=== PATIENT | female | born 1930 | race Caucasian/White ===

== ENCOUNTER → 2016-12-31 | Outpatient (REF) | payer MEDICARE, OTHER ==
[~2016-12-31] MED LIST: ALBU17IN INH; ASTE0.15; ATEN25TA PO; CALCTAB93 PO; MAGNES; MAGNESIUM PO; OMEP20CA3 PO; RECLAST; SIMV40TA2 PO; SPECTROVITE PO; SPIR25TA2 PO; SYSTANE OU; VITAMIN D2 PO; [UNRECOGNIZED DRUG - OTHER] PO
== END ==
LOC: M WUC 09:05
PROVIDERS: ATTEND Physician Assistant
DX: R35.0 Frequency of micturition (principal)

== ENCOUNTER → 2017-06-30 | Outpatient (CLI) | payer MEDICARE, OTHER ==
--- NOTE | 2017-06-30 14:38 | REP ---
TRIPLE PHASE BONE SCAN OF PELVIS AND HIPS: Following the intravenous administration of 22 mCi of technetium-99m MDP, patient's pelvis and hips are imaged in the flow phase in the anterior and posterior projections showing symmetrical blood flow. Immediate blood pool and 2 hour delayed images are performed of the pelvis and hips in the anterior, posterior, and both anterior oblique and posterior oblique projections as well as both lateral projections. There is no abnormal blood pooling. Delayed images show minimal arthritic uptake in the lower lumbar spine region. There is no other abnormal uptake seen with no evidence of occult fracture. IMPRESSION: Mild arthritic uptake in the lumbar spine. No occult fracture. Signed by Jay Irby MD 07/01/2017 04:28 P
== END ==
LOC: M RAD 07:59
PROVIDERS: ATTEND Orthopaedic Surgery
DX: M51.36 Other intervertebral disc degeneration, lumbar region (principal)
CPT/HCPCS: 78315; A9503

== ENCOUNTER → 2018-03-26 | Outpatient (REF) | payer MEDICARE, OTHER ==
[2018-03-26 21:52] LABS: APPEARANCE, URINE CLEAR (CLEAR); BACTERIA, URINE AUTO NEGATIVE (NEGATIVE); BILIRUBIN, URINE AUTO NEGATIVE (NEGATIVE); BLOOD, URINE BLOOD NEGATIVE (NEGATIVE); COLOR, URINE STRAW (YELLOW); GLUCOSE, URINE (UA) AUTO NEGATIVE (NEGATIVE); KETONE, URINE AUTO NEGATIVE (NEGATIVE); LEUKOCYTE ESTERASE, URINE AUTO NEGATIVE (NEGATIVE); NITRITE, URINE AUTO NEGATIVE (NEGATIVE); PROTEIN, URINE AUTO NEGATIVE (NEGATIVE); RBC, URINE AUTO 0 /HPF (0-3); SPECIFIC GRAVITY URINE AUTO 1.004 (1.002-1.035); SQUAMOUS EPITHELIAL CELL UR AU 0 /HPF (0-6); UROBILINOGEN, URINE AUTO 0.2 mg/dL (0.0-2.0); WBC, URINE AUTO 0 /HPF (0-3)
== END ==
LOC: M LAB REF 09:47
DX: N39.0 Urinary tract infection, site not specified (principal)
CPT/HCPCS: 81001

== ENCOUNTER → 2018-04-05 | Outpatient (REF) | payer MEDICARE, OTHER ==
[2018-04-05 17:55] LABS: APPEARANCE, URINE CLEAR (CLEAR); BACTERIA, URINE AUTO NEGATIVE (NEGATIVE); BILIRUBIN, URINE AUTO NEGATIVE (NEGATIVE); BLOOD, URINE BLOOD NEGATIVE (NEGATIVE); COLOR, URINE YELLOW (YELLOW); GLUCOSE, URINE (UA) AUTO NEGATIVE (NEGATIVE); KETONE, URINE AUTO NEGATIVE (NEGATIVE); LEUKOCYTE ESTERASE, URINE AUTO 1+ (NEGATIVE); MUCUS, URINE SMALL (NEGATIVE); NITRITE, URINE AUTO NEGATIVE (NEGATIVE); PROTEIN, URINE AUTO NEGATIVE (NEGATIVE); RBC, URINE AUTO 1 /HPF (0-3); SPECIFIC GRAVITY URINE AUTO 1.011 (1.002-1.035); SQUAMOUS EPITHELIAL CELL UR AU 0 /HPF (0-6); UROBILINOGEN, URINE AUTO 0.2 mg/dL (0.0-2.0); WBC, URINE AUTO 3 /HPF (0-3)
== END ==
LOC: M LAB REF 16:23
DX: N39.0 Urinary tract infection, site not specified (principal)
CPT/HCPCS: 81001

== ENCOUNTER → 2018-04-29 | Outpatient (REF) | payer MEDICARE, OTHER | LOC: M LAB REF 16:27 | DX: N39.0 Urinary tract infection, site not specified (principal) | CPT/HCPCS: 87086 ==

== ENCOUNTER → 2018-06-17 | Outpatient (CLI) | payer MEDICARE, OTHER ==
[2018-06-17 20:49] LABS: BLOOD UREA NITROGEN 15 MG/DL (7-18)
[2018-06-17 20:49] LABS: GLOMERULAR FILTRATION RATE > 60.0 (>32)
== END ==
LOC: M WUC 18:07
DX: M51.36 Other intervertebral disc degeneration, lumbar region (principal)
CPT/HCPCS: 82565

== ENCOUNTER → 2018-06-23 | Outpatient (CLI) | payer MEDICARE, OTHER ==
[~2018-06-23] MED LIST changes: -ALBU17IN INH; -ASTE0.15; -ATEN25TA PO; -CALCTAB93 PO; -MAGNES; -MAGNESIUM PO; -OMEP20CA3 PO; +PROHANCE 279.3MG/ML 15ML VIAL (A9576) As Ordered; +PROHANCE 279.3MG/ML 5ML VIAL (A9576) As Ordered; -RECLAST; -SIMV40TA2 PO; -SPECTROVITE PO; -SPIR25TA2 PO; -SYSTANE OU; -VITAMIN D2 PO; -[UNRECOGNIZED DRUG - OTHER] PO
== END ==
LOC: M RAD 15:05
DX: M99.73 Connective tissue and disc stenosis of intervertebral foramina of lumbar region (principal); M43.16 Spondylolisthesis, lumbar region; M51.36 Other intervertebral disc degeneration, lumbar region
CPT/HCPCS: A9576

== ENCOUNTER → 2018-07-20 | Outpatient (CLI) | payer MEDICARE, OTHER ==
[2018-07-20 16:54] LABS: PLATELET COUNT, AUTOMATED 170 10^3/uL (150-450)
[2018-07-20 17:07] LABS: COLLAGEN EPINEPHRINE 100 SECONDS (74-162)
[2018-07-20 17:19] LABS: INR 1.08; PROTHROMBIN TIME 14.1 SECONDS (12.1-14.4)
[2018-07-20 17:20] LABS: PARTIAL THROMBOPLASTIN TIME 30.4 SECONDS (25.4-37.6)
== END ==
LOC: M LAB 16:21
DX: M51.36 Other intervertebral disc degeneration, lumbar region (principal)
CPT/HCPCS: 85049

== ENCOUNTER 2018-12-25 09:49 | Emergency (ER) | payer MEDICARE, OTHER ==
[~2018-12-25] VITALS: Ht 170.2 cm; Wt 104.5 kg
[~2018-12-25 09:49] MED LIST changes: +ALBU17IN INH; +ASTE0.15; +ATEN25TA PO; +CALCTAB93 PO; +MAGNES; +MAGNESIUM PO; +OMEP20CA3 PO; -PROHANCE 279.3MG/ML 15ML VIAL (A9576) As Ordered; -PROHANCE 279.3MG/ML 5ML VIAL (A9576) As Ordered; +RECLAST; +SIMV40TA2 PO; +SPECTROVITE PO; +SPIR-10 PO; +SYSTANE OU; +VITAMIN D2 PO; +[UNRECOGNIZED DRUG - OTHER] PO
[2018-12-25] MEDS ORDERED: NS 1,000 ML IV ONE (10:30)
[2018-12-25 10:41] LABS: BASO % 0.3 % (0.0-1.0); EOS % 0.2 % (0.0-3.0); HEMATOCRIT 53.1 % (36.0-47.0); HEMOGLOBIN 17.4 g/dl (12.0-15.5); LYMPH # 1.4 10^3/uL (1.5-4.5); LYMPH % 12.3 % (24.0-44.0); MEAN CORPUSCULAR HEMOGLOBIN 31.6 pg (27.0-33.0); MEAN CORPUSCULAR HGB CONC 32.8 g/dl (32.0-36.5); MEAN CORPUSCULAR VOLUME 96.5 fl (80.0-96.0); MONO % 8.3 % (0.0-5.0); NEUTROPHILS # 9.2 10^3/uL (1.8-7.7); NEUTROPHILS % 78.5 % (36.0-66.0); PLATELET COUNT, AUTOMATED 165 10^3/uL (150-450); WHITE BLOOD COUNT 11.7 10^3/uL (4.0-10.0)
[2018-12-25 11:13] LABS: ALBUMIN 3.8 GM/DL (3.2-5.2); ALT/SGPT 28 U/L (12-78); AMYLASE 34 U/L (25-115); BILIRUBIN,DIRECT 0.3 MG/DL (0.0-0.2); BILIRUBIN,TOTAL 1.2 MG/DL (0.2-1.0); BLOOD UREA NITROGEN 12 MG/DL (7-18); CALCIUM LEVEL 9.4 MG/DL (8.8-10.2); CARBON DIOXIDE LEVEL 30 MEQ/L (21-32); CHLORIDE LEVEL 99 MEQ/L (98-107); CREATININE FOR GFR 0.89 MG/DL (0.55-1.30); GLOMERULAR FILTRATION RATE > 60.0 (>32); GLUCOSE, FASTING 128 MG/DL (70-100); LIPASE 136 U/L (73-393); POTASSIUM SERUM 4.1 MEQ/L (3.5-5.1); SODIUM LEVEL 136 MEQ/L (136-145); TOTAL PROTEIN 8.3 GM/DL (6.4-8.2)
[2018-12-25] MEDS ORDERED: ISOVUE-370 76% 100ML VIAL (Q9967) As Ordered ONE (11:15)
[2018-12-25] MEDS ORDERED: CIPR-249 PO (11:52)
[2018-12-25] MEDS ORDERED: FLAG500T PO (11:53)
[2018-12-25 12:16] VITALS: BP 174/79
--- NOTE | 2018-12-26 09:13 | REP ---
CT of the abdomen and pelvis with IV contrast, without bowel contrast for lower abdominal pain: Comparison is a 2002. On the comparison study. The patient had a clinical history of liver cancer and there was partial resection of the hepatic right lobe and hypertrophy of the remaining left lobe and caudate lobe. Additionally, the patient has a cholecystectomy, appendectomy and hysterectomy. The patient has additional history of diverticulitis. There are numerous diverticula in the in the sigmoid colon as previously. On the study today there is a focal area of inflammation in the pericolonic fat of the sigmoid colon compatible with diverticulitis. There is no fluid collection to suggest abscess. There is no pneumoperitoneum. There is a small volume of ascites in the pelvis. The visualized lung martinez demonstrate fibro linear scarring but are otherwise unremarkable. There is partial hepatectomy. The remaining hepatic parenchyma is homogeneous and unremarkable. There are surgical clips along the right lateral margin of the liver. The pancreas and spleen are unremarkable. The adrenals and kidneys are unremarkable. Abdominal aorta is unremarkable. There is no retroperitoneal adenopathy. There is no mesenteric adenopathy. Pelvis: There are diverticula in the ascending colon without diverticulitis. The vaginal cuff and adnexa are unremarkable. The bladder is unremarkable. There are lumbar vertebra superior endplate grade 1 compression deformities at L2 and L4. There is advanced degenerative disc disease at L3-4 L4-5. There is bilateral hip osteoarthritis. Impression: There are multiple diverticula in the ascending colon and sigmoid colon. There is focal inflammation in the sigmoid colon pericolonic fat compatible with acute diverticulitis. There is a small volume of ascites in the pelvis. There are other chronic findings as described. Electronically Signed by Jay Gonzalez MD 12/25/2018 11:43 A
--- NOTE | 2018-12-27 08:11 | ED PDOC ---
Post-Departure Follow-Up dr amaral faxed formal report of ct abd/p for fu Nikki Beaver MD Dec 27, 2018 08:11
== END 2018-12-25 12:18 | disposition home or self-care (01) ==
LOC: M ED 09:49
DX: K57.92 Diverticulitis of intestine, part unspecified, without perforation or abscess without bleeding (principal); N30.90 Cystitis, unspecified without hematuria; I10 Essential (primary) hypertension; J45.909 Unspecified asthma, uncomplicated; H35.30 Unspecified macular degeneration; M81.0 Age-related osteoporosis without current pathological fracture; Z85.05 Personal history of malignant neoplasm of liver; Z79.51 Long term (current) use of inhaled steroids; Z79.899 Other long term (current) drug therapy; Z88.2 Allergy status to sulfonamides
CPT/HCPCS: 74177; 80048; 80076; 81001; 82150; 83690; 85025; 87086; 96360; 99284; Q9967

== ENCOUNTER → 2019-07-25 | Outpatient (REF) | payer MEDICARE, OTHER ==
[~2019-07-25] MED LIST changes: +CIPR-249 PO; +FLAG500T PO; -OMEP20CA3 PO; +OMEP20CA4 PO
[2019-07-25 13:17] LABS: PLATELET COUNT, AUTOMATED 182 10^3/uL (150-450)
[2019-07-25 13:37] LABS: INR 1.11
[2019-07-25 13:38] LABS: PARTIAL THROMBOPLASTIN TIME 32.8 SECONDS (25.0-38.4)
== END ==
LOC: M LABDRAW1 12:55
PROVIDERS: ATTEND Physician Assistant
DX: M47.817 Spondylosis without myelopathy or radiculopathy, lumbosacral region (principal); Z01.812 Encounter for preprocedural laboratory examination; Z79.01 Long term (current) use of anticoagulants

== ENCOUNTER → 2020-06-27 | Outpatient (REF) | payer MEDICARE, OTHER ==
[~2020-06-27] MED LIST changes: +OMEP1CAP73 PO; -OMEP20CA4 PO; -SIMV40TA2 PO; +SIMV40TA20 PO
[2020-06-27 21:41] LABS: APPEARANCE, URINE CLOUDY (CLEAR); BACTERIA, URINE AUTO 2+ (NEGATIVE); BILIRUBIN, URINE AUTO NEGATIVE (NEGATIVE); BLOOD, URINE BLOOD 3+ (NEGATIVE); COLOR, URINE YELLOW (YELLOW); GLUCOSE, URINE (UA) AUTO NEGATIVE (NEGATIVE); KETONE, URINE AUTO NEGATIVE (NEGATIVE); LEUKOCYTE ESTERASE, URINE AUTO 3+ (NEGATIVE); MUCUS, URINE SMALL (NEGATIVE); NITRITE, URINE AUTO NEGATIVE (NEGATIVE); PROTEIN, URINE AUTO NEGATIVE (NEGATIVE); RBC, URINE AUTO 13 /HPF (0-3); SPECIFIC GRAVITY URINE AUTO 1.005 (1.002-1.035); SQUAMOUS EPITHELIAL CELL UR AU 0 /HPF (0-6); TRANSITIONAL EPITHELIAL AUTO 1 /HPF; UROBILINOGEN, URINE AUTO 0.2 mg/dL (0.0-2.0); WBC, URINE AUTO 89 /HPF (0-3)
== END ==
LOC: M LAB REF 11:05
PROVIDERS: ATTEND Physician Assistant
DX: N39.0 Urinary tract infection, site not specified (principal)

== ENCOUNTER → 2020-08-03 | Outpatient (REF) | payer MEDICARE, OTHER ==
[2020-08-03 21:42] LABS: APPEARANCE, URINE HAZY (CLEAR); BACTERIA, URINE AUTO 1+ (NEGATIVE); BILIRUBIN, URINE AUTO NEGATIVE (NEGATIVE); BLOOD, URINE BLOOD NEGATIVE (NEGATIVE); COLOR, URINE YELLOW (YELLOW); GLUCOSE, URINE (UA) AUTO NEGATIVE (NEGATIVE); KETONE, URINE AUTO NEGATIVE (NEGATIVE); LEUKOCYTE ESTERASE, URINE AUTO 2+ (NEGATIVE); NITRITE, URINE AUTO POSITIVE (NEGATIVE); PROTEIN, URINE AUTO NEGATIVE (NEGATIVE); RBC, URINE AUTO 2 /HPF (0-3); SPECIFIC GRAVITY URINE AUTO 1.011 (1.002-1.035); SQUAMOUS EPITHELIAL CELL UR AU 0 /HPF (0-6); UROBILINOGEN, URINE AUTO 0.2 mg/dL (0.0-2.0); WBC, URINE AUTO 56 /HPF (0-3)
== END ==
LOC: M LAB REF 21:20
PROVIDERS: ATTEND Physician Assistant
DX: N39.0 Urinary tract infection, site not specified (principal)

== ENCOUNTER → 2020-09-06 | Outpatient (REF) | payer MEDICARE, OTHER | LOC: M LAB REF 12:32 | PROVIDERS: ATTEND Nurse Practitioner Adult Health | DX: N39.0 Urinary tract infection, site not specified (principal) ==

== ENCOUNTER → 2020-09-24 | Outpatient (REF) | payer MEDICARE, OTHER ==
[2020-09-24 13:56] LABS: APPEARANCE, URINE CLEAR (CLEAR); BACTERIA, URINE AUTO NEGATIVE (NEGATIVE); BILIRUBIN, URINE AUTO NEGATIVE (NEGATIVE); BLOOD, URINE BLOOD NEGATIVE (NEGATIVE); COLOR, URINE YELLOW (YELLOW); GLUCOSE, URINE (UA) AUTO NEGATIVE (NEGATIVE); KETONE, URINE AUTO NEGATIVE (NEGATIVE); LEUKOCYTE ESTERASE, URINE AUTO 1+ (NEGATIVE); MUCUS, URINE SMALL (NEGATIVE); NITRITE, URINE AUTO NEGATIVE (NEGATIVE); PROTEIN, URINE AUTO NEGATIVE (NEGATIVE); RBC, URINE AUTO 1 /HPF (0-3); SPECIFIC GRAVITY URINE AUTO 1.012 (1.002-1.035); SQUAMOUS EPITHELIAL CELL UR AU 1 /HPF (0-6); UROBILINOGEN, URINE AUTO 0.2 mg/dL (0.0-2.0); WBC, URINE AUTO 2 /HPF (0-3)
== END ==
LOC: M SMT 12:52
PROVIDERS: ATTEND Nurse Practitioner Family
DX: N39.0 Urinary tract infection, site not specified (principal)
CPT/HCPCS: 51798; 81001; 87086; G0463

== ENCOUNTER → 2020-09-27 | Outpatient (CLI) | payer MEDICARE, OTHER ==
--- NOTE | 2020-09-27 15:17 | REP ---
INDICATION: N39.0 FREQUENT UTI. COMPARISON: None. TECHNIQUE: Real-time sonographic evaluation of the kidneys is performed. FINDINGS: Renal cortical echogenicity pattern is normal bilaterally and contours are smooth. There is no evidence of hydronephrosis, cyst, mass, or calculus in either kidney. The right kidney measures 10.7 x 6.2 x 5.1 cm. Left renal dimensions are 10.8 x 4.7 x 5.3 cm. Urinary bladder is empty. With duplex Doppler evaluation resistive index of each kidney 0.64. IMPRESSION: Negative renal ultrasound. <Electronically signed by Jay Irby > 09/27/20 [id number]
== END ==
LOC: M WHC 14:00
PROVIDERS: ATTEND Nurse Practitioner Family
DX: N39.0 Urinary tract infection, site not specified (principal)

== ENCOUNTER → 2020-12-07 | Outpatient (REF) | payer MEDICARE, OTHER ==
[2020-12-07 16:29] LABS: APPEARANCE, URINE CLEAR (CLEAR); BACTERIA, URINE AUTO NEGATIVE (NEGATIVE); BILIRUBIN, URINE AUTO NEGATIVE (NEGATIVE); BLOOD, URINE BLOOD NEGATIVE (NEGATIVE); COLOR, URINE STRAW (YELLOW); GLUCOSE, URINE (UA) AUTO NEGATIVE (NEGATIVE); KETONE, URINE AUTO NEGATIVE (NEGATIVE); LEUKOCYTE ESTERASE, URINE AUTO NEGATIVE (NEGATIVE); NITRITE, URINE AUTO NEGATIVE (NEGATIVE); PROTEIN, URINE AUTO NEGATIVE (NEGATIVE); RBC, URINE AUTO 0 /HPF (0-3); SPECIFIC GRAVITY URINE AUTO 1.004 (1.002-1.035); SQUAMOUS EPITHELIAL CELL UR AU 0 /HPF (0-6); UROBILINOGEN, URINE AUTO 0.2 mg/dL (0.0-2.0); WBC, URINE AUTO 0 /HPF (0-3)
== END ==
LOC: M LAB REF 16:04
PROVIDERS: ATTEND Physician Assistant
DX: N39.0 Urinary tract infection, site not specified (principal)

== ENCOUNTER → 2021-04-17 | Outpatient (REF) | payer MEDICARE, OTHER ==
[2021-04-17 21:45] LABS: APPEARANCE, URINE HAZY (CLEAR); BACTERIA, URINE AUTO 3+ (NEGATIVE); BILIRUBIN, URINE AUTO NEGATIVE (NEGATIVE); BLOOD, URINE BLOOD NEGATIVE (NEGATIVE); COLOR, URINE YELLOW (YELLOW); GLUCOSE, URINE (UA) AUTO NEGATIVE (NEGATIVE); KETONE, URINE AUTO NEGATIVE (NEGATIVE); LEUKOCYTE ESTERASE, URINE AUTO 2+ (NEGATIVE); MUCUS, URINE SMALL (NEGATIVE); NITRITE, URINE AUTO NEGATIVE (NEGATIVE); PROTEIN, URINE AUTO NEGATIVE (NEGATIVE); RBC, URINE AUTO 2 /HPF (0-3); SPECIFIC GRAVITY URINE AUTO 1.025 (1.002-1.035); SQUAMOUS EPITHELIAL CELL UR AU 1 /HPF (0-6); UROBILINOGEN, URINE AUTO 0.2 mg/dL (0.0-2.0); WBC, URINE AUTO 14 /HPF (0-3)
== END ==
LOC: M LAB REF 21:20
PROVIDERS: ATTEND Physician Assistant
DX: R30.0 Dysuria (principal)